=== PATIENT | female | born 2000 | race Caucasian/White ===

== ENCOUNTER 2022-05-23 20:16 | Outpatient (CLI) | payer OTHER, SELFPAY | END 2022-05-23 20:17 | disposition home or self-care (01) | LOC: AMB 06-04 14:17 | PROVIDERS: Visit Provider Family Medicine | DX: S52.201B Unspecified fracture of shaft of right ulna, initial encounter for open fracture type I or II (principal); V80.010A Animal-rider injured by fall from or being thrown from horse in noncollision accident, initial encounter; Y93.52 Activity, horseback riding; Y92.9 Unspecified place or not applicable | CPT/HCPCS: A0425; A0427 ==